=== PATIENT | female | born 1985 | race Caucasian/White ===

== ENCOUNTER 2017-01-28 14:08 | Emergency (ER) | payer OTHER ==
[~2017-01-28] VITALS: Ht 162.6 cm; Wt 75.0 kg
[2017-01-28] MEDS ORDERED: ZIPRASIDONE 20 MG INJ IM ONE (15:00)
[2017-01-28 15:09] LABS: HEMATOCRIT 41.3 % (34.6-47.8); HEMOGLOBIN 13.6 g/dL (11.7-16.4); WHITE BLOOD COUNT 7.7 x10^3/uL (3.4-10)
[2017-01-28 15:10] LABS: DAU SCREEN DISCLAIMER
[2017-01-28 15:17] LABS: BLOOD UREA NITROGEN 16 mg/dL (7-18)
[2017-01-28 15:18] LABS: ACETAMINOPHEN < 2 mcg/mL (10-30)
[2017-01-28 19:00] VITALS: BP 124/74
== END 2017-01-28 19:33 | disposition home or self-care (01) ==
LOC: ED 18:30
DX: F28 Other psychotic disorder not due to a substance or known physiological condition (principal); F31.9 Bipolar disorder, unspecified; F43.10 Post-traumatic stress disorder, unspecified
CPT/HCPCS: 36415; 80048; 80307; 80329; 82040; 84703; 85025; 96372; 99284; J3486; G0480

== ENCOUNTER 2017-01-28 14:30 | Emergency (ER) | payer OTHER ==
[2017-01-28] MEDS ORDERED: ZIPRASIDONE 20 MG INJ IM ONE (14:58)
== END 2017-01-28 14:35 ==
LOC: ED 14:30
DX: Z53.21 Procedure and treatment not carried out due to patient leaving prior to being seen by health care provider (principal)